=== PATIENT | female | born 1995 | race Caucasian/White ===

== ENCOUNTER 2016-12-04 07:19 | Observation (INO) | payer OTHER ==
[2016-12-04] VITALS (8 sets, daily range): BP systolic 106–130; BP diastolic 57–78
[~2016-12-04] VITALS: Ht 167.6 cm; Wt 86.5 kg
--- NOTE | 2016-12-04 10:14 | DIAGNOSTIC IMAGING REPORT ---
PROCEDURE: US ABDOMEN ULTRASOUND-LIMITED INDICATION: PAIN TECHNIQUE: Rodriguez scale and color Doppler sonographic images of the abdomen were obtained. COMPARISON: None. FINDINGS: There are multiple mobile shadowing gallstones (3-5 mm). Mild dilation of the common duct (6 mm). Portions of the liver, pancreas, and right kidney are seen, and are normal. IMPRESSION: 1. Cholelithiasis (mobile gallstones). 2. Mild dilation of the common bile duct (6 mm). Consider occult common duct stone. 3. Findings discussed with Dr. Noah Carmen.
--- NOTE | 2016-12-04 11:04 | ED NURSING NOTES ---
Clinical Report - Nurses [facility] [address] [place] [address] 12/04/2016 7:21 Patient: TIMOTHY OROSCO TRIAGE Triage time 07:31. Acuity: LEVEL 3. Chief Complaint: ABDOMINAL PAIN, NAUSEA, VOMITING and DIARRHEA. Alert. No acute distress. ( Pt. states she had a baby 5 weeks ago and had a "uterus infection because there was debri still in there." She is concerned this could be causing the pain.). SEPSIS SCREEN: Sepsis Screen. Negative (no infection suspected/documented). MELINDA COMA SCORE: Melinda Coma Scale: 15- eyes open spontaneously (4); best verbal response- oriented x 4 (5); best motor response- obeys commands (6). --07:35 Avelina Sidhu R.N. 07:30 12/04/16. BP: 107/58. HR: 88. RR: 26. O2 saturation: 100%. Temp: 97.6 F. Pain level now 8/10. --07:35 Avelina Sidhu R.N. Weight: 84.8 kg stated. Height/Length: 66 inches Per Patient. BMI: 30.2. --07:32 Avelina Sidhu R.N. Medications Fenugreek Oral, prn. --07:34 Avelina Sidhu R.N. Allergies Tramadol. --07:34 Avelina Sidhu R.N. Antibiotics. --07:34 Avelina Sidhu R.N. History Arrived by private vehicle. Historian: patient. Accompanied by family. Primary physician (Dr. Szymanski). This started today. Onset. (0200). Treatment BUSINESS INTERN: None. PAST MEDICAL HX: Immunizations: up-to-date. Last normal menstrual period- post 5 weeks. SOCIAL HX: Never smoker. No alcohol use or drug use. No recent travel. No infectious disease exposure. No known contact with a sick individual. ABUSE ASSESSMENT: Abuse assessment: The patient was asked "Do you feel safe in your home?" and "Has anyone hurt you or threatened to hurt you?". No report of abuse. SELF HARM ASSESSMENT: A self harm assessment was performed. The patient answered "no" to the question "Do you have thoughts of harming or killing yourself?" and "Have you recently had thoughts about harming or killing others?". NUTRITIONAL RISK ASSESSMENT: The nutritional risk assessment revealed no deficiencies. FUNCTIONAL ASSESSMENT: Functional assessment: no impairments noted. LEARNING NEEDS ASSESSMENT: The learning needs assessment revealed no barriers. --07:35 Avelina Sidhu R.N. Interventions ID band on patient. Transported via wheelchair. --07:35 Avelina Sidhu R.N. PHYSICAL ASSESSMENT To room via wheelchair. GENERAL / NEURO / PSYCH: Alert. Oriented X 4. Appears anxious. HEENT: Mucous membranes are pink. RESPIRATORY: Respirations not labored. CVS: Capillary refill less than 2 seconds. GI / : Abdomen soft. Abdominal tenderness in the periumbilical area. SKIN: Skin is warm and dry. --07:35 Avelina Sidhu R.N. NURSING PROGRESS NOTES Patient gowned. Head of bed elevated. Two patient identifiers checked. Call light placed in reach. Side rails up x 2. Bed placed in lowest position. Brakes of bed on. Patient ready for evaluation- chart flagged. --07:36 Avelina Sidhu R.N. 07:45 12/04/2016 Site #1 started via IV in the left antecubital space with an 20g angiocath; one attempt. Blood drawn: rainbow set. Labeled in the presence of the patient and sent to the lab. Saline lock flushed with 10 mL saline. --07:55 Yenni Lee R.N. 07:56 12/04/2016 Dilaudid (HYDROmorphone HCl PF) IVP 0.5 mg given over 2 minute(s) via site #1. Allergies verified, confirmed 5 rights and sedative warning given to the patient and patient's audio visual technician. IV patency established. IV site checked: no pain, redness, or swelling. IV flushed thoroughly pre- and post-medication administration. IVP given by RN. --07:56 Yenni Lee R.N. 07:56 12/04/2016 Ativan (LORazepam) IVP 0.5 mg given over 2 minute(s) via site #1. Allergies verified, confirmed 5 rights and sedative warning given to the patient and patient's audio visual technician. IV patency established. IV site checked: no pain, redness, or swelling. IV flushed thoroughly pre- and post-medication administration. IVP given by RN. --07:56 Yenni Lee R.N. 07:57 12/04/2016 Zofran (Ondansetron HCl) IVP 4 mg given over 2 minute(s) via site #1. Allergies verified and confirmed 5 rights. IV patency established. IV site checked: no pain, redness, or swelling. IV flushed thoroughly pre- and post-medication administration. IVP given by RN. --07:57 Yenni Lee R.N. 08:18 12/04/2016 GI COCKTAIL WHITE (Simethicone) PO 50 mL given. Allergies verified and confirmed 5 rights. --08:18 Avelina Sidhu R.N. Patient ID band checked for patient name, birthdate and medical record number: patient confirmed. Instructions provided to collect clean catch urine and patient verbalized understanding. Clean catch urine collected with return of yellow-colored clear urine; sample sent to lab for urinalysis. Specimen labeled in the presence of the patient. --09:09 Avelina Sidhu R.N. 08:30 12/04/2016 GI COCKTAIL WHITE PO Response: no adverse reaction the patient feels the same. --09:11 Avelina Sidhu R.N. 09:11 12/04/16. BP: 121/67. HR: 68. RR: 16. O2 saturation: 98%. Pain level now 09/23. --09:11 Avelina Sidhu R.N. Patient informed about reason for wait and about plan of care. --09:11 Avelina Sidhu R.N. 10:31 12/04/16. BP: 115/64. HR: 84. RR: 16. O2 saturation: 99%. --10:31 Avelina Sidhu R.N. Patient informed about reason for wait and about plan of care. --10:31 Avelina Sidhu R.N. 11:34 12/04/2016 Started 500 mg of Levofloxacin IVPB in bag #1 100 mL; at 100 mL/hr over 1 hour(s) via site #1 via IV pump. Allergies verified and confirmed 5 rights. IV patency established. IV site checked: no pain, redness, or swelling. IV flushed thoroughly pre- and post-medication administration. --11:40 Anastasiia Klein R.N. 11:36 12/04/2016 Started bag #1 1000 mL IV Fluids IV LACTATED RINGERS; at 150 mL/hr over 8 hour(s) via site #1 via IV pump. Allergies verified and confirmed 5 rights. IV patency established. IV site checked: no pain, redness, or swelling. IV flushed thoroughly pre- and post-medication administration. --11:36 Anastasiia Klein R.N. Reassessment after fluids administered and medication administered. She reports no complaints and she is resting quietly. --12:09 Avelina Sidhu R.N. 12:12/04/16. BP: 117/63. HR: 83. RR: 16. O2 saturation: 100%. Pain level now 09/23. --12:09 Avelina Sidhu R.N. ( Attempt to call report. AC RN to call back.). --12:12 Avelina Sidhu R.N. ( attempt to call report. AC RN to call back.). --12:24 Avelina Sidhu R.N. 12:30 12/04/2016 Levofloxacin IVPB Continued: upon admission at the rate of 150 mL/hr. 850 mL remaining bag #1. IV patency established. IV site checked: no pain, redness, or swelling. IV flushed thoroughly. --12:40 Avelina Sidhu R.N. DISPOSITION / DISCHARGE Report was given to a nurse via a phone call. Report included patient's care, treatment, medications, reviewed medication reconcilliation, and condition (including any recent changes or anticipated changes). All questions were answered. --12:28 Avelina Sidhu R.N. Admitted to Acute Care. Patient's personal items; items were placed in belongings bag and transported with the patient. --12:29 Avelina Sidhu R.N. ( 12:12/04/16. BP: 117/63. HR: 83. RR: 16. O2 saturation: 100%. Pain level now 09/23. 12:09 Avelina Sidhu R.N.). --12:35 Avelina Sidhu R.N. 12:34 12/04/16. RR: 15. Pain level now 09/23. --12:35 Avelina Sidhu R.N. Departure time: 12:30. --12:40 Avelina Sidhu R.N. Locked/Released at 12/04/2016 12:40 by Avelina Sidhu R.N.
--- NOTE | 2016-12-04 11:04 | ED CLINICAL REPORT ---
Clinical Report - Physicians/Mid Levels [facility] [address] [place] [address] 12/04/2016 7:21 Patient: TIMOTHY OROSCO Time Seen: 07:38 Dec 04 2016. Arrived- By private vehicle. Historian- patient. HISTORY OF PRESENT ILLNESS Chief Complaint: ABDOMINAL PAIN. At its maximum, severity described as moderate and 9 / 10. When seen in the E.D., severity described as moderate and 9 / 10. Modifying factors. Not worsened by anything. Not relieved by anything. It is described as "pain" and it is described as located in the epigastric area and radiating to the upper back. This started today 0200; ( Pt. states she had a baby 5 weeks ago and had a "uterus infection because there was debri still in there." She is concerned this could be causing the pain.). and is still present. The patient has had nausea, loss of appetite and vomiting. She has had mild diarrhea. This has occurred only once. No recent travel. Similar symptoms previously: None. Recent medical care: Not recently seen/assessed. REVIEW OF SYSTEMS No constipation, black stools, hematemesis, difficulty with urination or pain with urination. No urinary frequency, fever, sore throat, chest pain or difficulty breathing. No cough, joint pain, skin rash, chills or back pain. Denies current . All systems otherwise negative, except as recorded above. PAST HISTORY No history of gallstones. Surgeries: No prior abdominal surgery. Medications: Fenugreek Oral, prn. Allergies: Tramadol. Unasyn. SOCIAL HISTORY Never smoker. No alcohol use or drug use. ADDITIONAL NOTES The nursing notes have been reviewed. PHYSICAL EXAM Vital Signs: 12/04/2016 07:30 BP: 107/58. HR: 88. RR: 26. O2 saturation: 100%. Temp: 97.6 F. Have been reviewed. Hypotensive. Heart rate normal. Tachypneic. Temperature normal. Oxygen saturation normal. Appearance: Alert. Appears to be in pain. Patient in moderate distress. Eyes: Eyes normal inspection. ENT: Pharynx normal. Neck: Normal inspection. CVS: Normal heart rate and rhythm. Heart sounds normal. Pulses normal. Respiratory: No respiratory distress. Breath sounds normal. Chest nontender. Abdomen: Soft. Moderate tenderness in the epigastric area with guarding present. Abnormal bowel sounds: diminished. Back: Normal inspection. No CVA tenderness. Skin: Skin warm. Normal skin color. No rash. Neuro: Oriented X 3. No motor deficit. No sensory deficit. LABS, X-RAYS, AND EKG Abdominal Sonogram: (1. Cholelithiasis (mobile gallstones). 2. Mild dilation of the common bile duct (6 mm). Consider occult common duct stone.). Study included the gallbladder. Prior studies were not available for comparison. The study was interpreted by the radiologist and discussed with the radiologist. Interpretation time: 10:21. Laboratory Tests: CBC w Diff: (LIBERTY: 12/04/2016 07:35) ( [facility] 12/04/2016 08:01) Final results Test Result Flag Units (Reference) WHITE BLOOD COUNT 9.8 K/uL (4.5-11.5) RED BLOOD COUNT 4.45 M/uL (4.00-5.20) HEMOGLOBIN 10.6 L gm/dL (12.0-16.0) HEMATOCRIT 33.0 L % (36.0-46.0) MEAN CELL VOLUME 74 L fL (80-100) MEAN CORPUSCULAR HGB 24 L pg (26-34) MEAN CORPUSCULAR HGB CONC 32 g/dL (31-37) RED CELL DISTRIBUTION WIDTH 20.2 H % (11.6-14.8) PLATELET COUNT 265 K/uL (150-400) NEUTROPHIL % 64.2 % (50-75) LYMPH % 26.8 % (25-40) MONO % 7.4 % (3-14) EOSINOPHIL % 1.3 % (0-4) BASOPHIL % 0.3 % (0-2) CMP: (LIBERTY: 12/04/2016 07:35) ( [facility] 12/04/2016 08:33) Final results Test Result Flag Units (Reference) GLUCOSE 108 mg/dL (70-110) BUN 12 mg/dL (7-18) CREATININE 1.0 mg/dL (0.6-1.3) Estimated GFR >60 mL/min Estimated GFR- >60 mL/min Note: Persistent reduction over 3 months in eGFR<60 mL/min/1.73 m2 defines CKD. Patients with eGFR values>=60 mL/min/1.73 m2 may also have CKD if evidence ofpersistent proteinuria. Additional information may be foundat www.kidney.org. SODIUM 137 mmol/L (136-145) POTASSIUM 3.7 mmol/L (3.5-5.1) CHLORIDE 105 mmol/L (98-107) CARBON DIOXIDE 25 mmol/L (21-32) CALCIUM 8.3 L mg/dL (8.5-10.1) TOTAL PROTEIN 7.4 g/dL (6.4-8.2) ALBUMIN 3.5 g/dL (3.3-5.0) BILIRUBIN, TOTAL 0.6 mg/dL (0.0-1.0) ALKALINE PHOSPHATASE 147 H U/L (46-116) AST (SGOT) 369 H U/L (15-37) ALT (SGPT) 180 H U/L (12-78) LIPASE 190 U/L (73-393) AMYLASE 68 U/L (25-115) C-REACTIVE PROTEIN 0.6 mg/dL (0.0-0.9) . PROGRESS AND PROCEDURES Course of Care: Heplock Ativan 0.5 mg IV Dilaudid 0.5 mg IV Zofran 4 mg IV Patient is stable. Symptoms better. Consult obtained from surgery. call returned 11:01 Dr. Ward. Maria Esther, obs, and will take for Martinez Villar. Disposition: Observation in Acute Care. Condition: good. CLINICAL IMPRESSION Acute cholecystitis with obstruction, cholelithiasis and choledocholithiasis. INSTRUCTIONS Follow-up: Screening today revealed the patient's blood pressure to be in the normal range. (Electronically signed by Noah Carmen Dr. 12/04/2016 13:14)
--- NOTE | 2016-12-04 11:04 | ED ORDER SUMMARY ---
..... Patient: TIMOTHY OROSCO OrderSheet [facility] VisitID: [id number] [address] [place] [address] 21y, F Registration Date/Time: 12/04/2016 ORDER SHEET Weight: 84.8 kg (stated) Allergies: Tramadol, Unasyn GENERAL ORDERS: UA-Culture if indicated Urgent (07:37 12/04/2016 SReitz R.N. per protocol) (Sent 7:46 NKneeland R.N.) (9:06 SReitz R.N.) Amylase Urgent (07:37 12/04/2016 SReitz R.N. per protocol) (Sent 7:47 NKneeland R.N.) (8:16 SReitz R.N.) Lipase Urgent (07:37 12/04/2016 SReitz R.N. per protocol) (Sent 7:47 NKneeland R.N.) (8:16 SReitz R.N.) CMP Urgent (07:37 12/04/2016 SReitz R.N. per protocol) (Sent 7:47 NKneeland R.N.) (8:16 SReitz R.N.) CBC w Diff Urgent (07:37 12/04/2016 SReitz R.N. per protocol) (Sent 7:47 NKneeland R.N.) (8:16 SReitz R.N.) NPO (07:37 12/04/2016 SReitz R.N. per protocol) (Ack 7:47 NKneeland R.N.) (7:56 SReitz R.N.) PCT (Procalcitonin) Urgent (07:40 12/04/2016 Doris BURKETT) (Sent 7:47 NKneeland R.N.) (8:16 SReitz R.N.) CRP Urgent (07:40 12/04/2016 Doris BURKETT) (Sent 7:47 NKneeland R.N.) (8:16 SReitz R.N.) US Abdomen Limited (Yes) Urgent (08:36 12/04/2016 Doris BURKETT) (Ack 8:39 TBergley) (10:01 TBergley) MEDICATION ORDERS: GI Cocktail WHITE PO 50 mL (when nausea better.) (07:48 12/04/2016 Doris BURKETT) (Ack 8:15 Lise R.N.) (8:18 Lise Crockett.N.) IV FLUIDS: IV Saline Lock (07:37 12/04/2016 Lise Blackburn per protocol) (7:55 Jose Enrique Crockett.N.) Dilaudid IV 0.5 mg (NOW) (07:44 12/04/2016 Doris BURKETT) (7:56 Jose Enrique Crockett.N.) Ativan IV 0.5 mg (NOW) (07:44 12/04/2016 Doris BURKETT) (7:56 Jose Enrique Crockett.N.) Zofran IV 4 mg (NOW) (07:45 12/04/2016 Doris BURKETT) (7:57 Jose Enrique Crockett.N.) IV Lactated Ringers : initial bolus none -, then 150 mL/hr (NOW) (10:57 12/04/2016 Serafin Pierce) (Ack 11:22 MWinterer R.N.) (11:36 MWinterer R.N.) Flagyl IV 500 mg/100mL (NOW) (10:58 12/04/2016 Serafin Pierce) (Ack 11:22 MWinterer R.N.) Levofloxacin IV 500 mg/100mL (NOW) (10:58 12/04/2016 Serafin Pierce) (Ack 11:22 MWinterer R.N.) (11:40 MWinterer R.N.) ORDER SHEET NOTES: [Electronically signed by Avelina Sidhu R.N. (12:40 12/04/2016)] [Electronically signed by Noah Carmen Dr. (13:14 12/04/2016)] [Electronically locked/signed by Avelina Sidhu R.N. (12:40 12/04/2016)]
--- NOTE | 2016-12-04 11:04 | ED ORDER SUMMARY ---
..... Patient: TIMOTHY OROSCO OrderSheet [facility] VisitID: [id number] [address] [place] [address] 21y, F Registration Date/Time: 12/04/2016 ORDER SHEET Weight: 84.8 kg (stated) Allergies: Tramadol, Unasyn GENERAL ORDERS: UA-Culture if indicated Urgent (07:37 12/04/2016 SReitz R.N. per protocol) (Sent 7:46 NKneeland R.N.) (9:06 SReitz R.N.) Amylase Urgent (07:37 12/04/2016 SReitz R.N. per protocol) (Sent 7:47 NKneeland R.N.) (8:16 SReitz R.N.) Lipase Urgent (07:37 12/04/2016 SReitz R.N. per protocol) (Sent 7:47 NKneeland R.N.) (8:16 SReitz R.N.) CMP Urgent (07:37 12/04/2016 SReitz R.N. per protocol) (Sent 7:47 NKneeland R.N.) (8:16 SReitz R.N.) CBC w Diff Urgent (07:37 12/04/2016 SReitz R.N. per protocol) (Sent 7:47 NKneeland R.N.) (8:16 SReitz R.N.) NPO (07:37 12/04/2016 SReitz R.N. per protocol) (Ack 7:47 NKneeland R.N.) (7:56 SReitz R.N.) PCT (Procalcitonin) Urgent (07:40 12/04/2016 Doris BURKETT) (Sent 7:47 NKneeland R.N.) (8:16 SReitz R.N.) CRP Urgent (07:40 12/04/2016 Doris BURKETT) (Sent 7:47 NKneeland R.N.) (8:16 SReitz R.N.) US Abdomen Limited (Yes) Urgent (08:36 12/04/2016 Doris BURKETT) (Ack 8:39 TBergley) (10:01 TBergley) MEDICATION ORDERS: GI Cocktail WHITE PO 50 mL (when nausea better.) (07:48 12/04/2016 Doris BURKETT) (Ack 8:15 Lise R.N.) (8:18 Lise Crockett.N.) IV FLUIDS: IV Saline Lock (07:37 12/04/2016 Lise Blackburn per protocol) (7:55 Jose Enrique Crockett.N.) Dilaudid IV 0.5 mg (NOW) (07:44 12/04/2016 Doris BURKETT) (7:56 Jose Enrique Crockett.N.) Ativan IV 0.5 mg (NOW) (07:44 12/04/2016 Doris BURKETT) (7:56 Jose Enrique Crockett.N.) Zofran IV 4 mg (NOW) (07:45 12/04/2016 Doris BURKETT) (7:57 Jose Enrique Crockett.N.) IV Lactated Ringers : initial bolus none -, then 150 mL/hr (NOW) (10:57 12/04/2016 Serafin Pierce) (Ack 11:22 MWinterer R.N.) (11:36 MWinterer R.N.) Flagyl IV 500 mg/100mL (NOW) (10:58 12/04/2016 Serafin Pierce) (Ack 11:22 MWinterer R.N.) Levofloxacin IV 500 mg/100mL (NOW) (10:58 12/04/2016 Serafin Pierce) (Ack 11:22 MWinterer R.N.) (11:40 MWinterer R.N.) ORDER SHEET NOTES: [Electronically signed by Avelina Sidhu R.N. (12:40 12/04/2016)] [Electronically signed by Noah Carmen Dr. (13:14 12/04/2016)] [Electronically locked/signed by Avelina Sidhu R.N. (12:40 12/04/2016)]
--- NOTE | 2016-12-04 11:04 | ED CLINICAL REPORT ---
Clinical Report - Physicians/Mid Levels [facility] [address] [place] [address] 12/04/2016 7:21 Patient: TIMOTHY OROSCO Time Seen: 07:38 Dec 04 2016. Arrived- By private vehicle. Historian- patient. HISTORY OF PRESENT ILLNESS Chief Complaint: ABDOMINAL PAIN. At its maximum, severity described as moderate and 9 / 10. When seen in the E.D., severity described as moderate and 9 / 10. Modifying factors. Not worsened by anything. Not relieved by anything. It is described as "pain" and it is described as located in the epigastric area and radiating to the upper back. This started today 0200; ( Pt. states she had a baby 5 weeks ago and had a "uterus infection because there was debri still in there." She is concerned this could be causing the pain.). and is still present. The patient has had nausea, loss of appetite and vomiting. She has had mild diarrhea. This has occurred only once. No recent travel. Similar symptoms previously: None. Recent medical care: Not recently seen/assessed. REVIEW OF SYSTEMS No constipation, black stools, hematemesis, difficulty with urination or pain with urination. No urinary frequency, fever, sore throat, chest pain or difficulty breathing. No cough, joint pain, skin rash, chills or back pain. Denies current . All systems otherwise negative, except as recorded above. PAST HISTORY No history of gallstones. Surgeries: No prior abdominal surgery. Medications: Fenugreek Oral, prn. Allergies: Tramadol. Unasyn. SOCIAL HISTORY Never smoker. No alcohol use or drug use. ADDITIONAL NOTES The nursing notes have been reviewed. PHYSICAL EXAM Vital Signs: 12/04/2016 07:30 BP: 107/58. HR: 88. RR: 26. O2 saturation: 100%. Temp: 97.6 F. Have been reviewed. Hypotensive. Heart rate normal. Tachypneic. Temperature normal. Oxygen saturation normal. Appearance: Alert. Appears to be in pain. Patient in moderate distress. Eyes: Eyes normal inspection. ENT: Pharynx normal. Neck: Normal inspection. CVS: Normal heart rate and rhythm. Heart sounds normal. Pulses normal. Respiratory: No respiratory distress. Breath sounds normal. Chest nontender. Abdomen: Soft. Moderate tenderness in the epigastric area with guarding present. Abnormal bowel sounds: diminished. Back: Normal inspection. No CVA tenderness. Skin: Skin warm. Normal skin color. No rash. Neuro: Oriented X 3. No motor deficit. No sensory deficit. LABS, X-RAYS, AND EKG Abdominal Sonogram: (1. Cholelithiasis (mobile gallstones). 2. Mild dilation of the common bile duct (6 mm). Consider occult common duct stone.). Study included the gallbladder. Prior studies were not available for comparison. The study was interpreted by the radiologist and discussed with the radiologist. Interpretation time: 10:21. Laboratory Tests: CBC w Diff: (LIBERTY: 12/04/2016 07:35) ( [facility] 12/04/2016 08:01) Final results Test Result Flag Units (Reference) WHITE BLOOD COUNT 9.8 K/uL (4.5-11.5) RED BLOOD COUNT 4.45 M/uL (4.00-5.20) HEMOGLOBIN 10.6 L gm/dL (12.0-16.0) HEMATOCRIT 33.0 L % (36.0-46.0) MEAN CELL VOLUME 74 L fL (80-100) MEAN CORPUSCULAR HGB 24 L pg (26-34) MEAN CORPUSCULAR HGB CONC 32 g/dL (31-37) RED CELL DISTRIBUTION WIDTH 20.2 H % (11.6-14.8) PLATELET COUNT 265 K/uL (150-400) NEUTROPHIL % 64.2 % (50-75) LYMPH % 26.8 % (25-40) MONO % 7.4 % (3-14) EOSINOPHIL % 1.3 % (0-4) BASOPHIL % 0.3 % (0-2) CMP: (LIBERTY: 12/04/2016 07:35) ( [facility] 12/04/2016 08:33) Final results Test Result Flag Units (Reference) GLUCOSE 108 mg/dL (70-110) BUN 12 mg/dL (7-18) CREATININE 1.0 mg/dL (0.6-1.3) Estimated GFR >60 mL/min Estimated GFR- >60 mL/min Note: Persistent reduction over 3 months in eGFR<60 mL/min/1.73 m2 defines CKD. Patients with eGFR values>=60 mL/min/1.73 m2 may also have CKD if evidence ofpersistent proteinuria. Additional information may be foundat www.kidney.org. SODIUM 137 mmol/L (136-145) POTASSIUM 3.7 mmol/L (3.5-5.1) CHLORIDE 105 mmol/L (98-107) CARBON DIOXIDE 25 mmol/L (21-32) CALCIUM 8.3 L mg/dL (8.5-10.1) TOTAL PROTEIN 7.4 g/dL (6.4-8.2) ALBUMIN 3.5 g/dL (3.3-5.0) BILIRUBIN, TOTAL 0.6 mg/dL (0.0-1.0) ALKALINE PHOSPHATASE 147 H U/L (46-116) AST (SGOT) 369 H U/L (15-37) ALT (SGPT) 180 H U/L (12-78) LIPASE 190 U/L (73-393) AMYLASE 68 U/L (25-115) C-REACTIVE PROTEIN 0.6 mg/dL (0.0-0.9) . PROGRESS AND PROCEDURES Course of Care: Heplock Ativan 0.5 mg IV Dilaudid 0.5 mg IV Zofran 4 mg IV Patient is stable. Symptoms better. Consult obtained from surgery. call returned 11:01 Dr. Ward. Maria Esther, obs, and will take for Martinez Villar. Disposition: Observation in Acute Care. Condition: good. CLINICAL IMPRESSION Acute cholecystitis with obstruction, cholelithiasis and choledocholithiasis. INSTRUCTIONS Follow-up: Screening today revealed the patient's blood pressure to be in the normal range. (Electronically signed by Noah Carmen Dr. 12/04/2016 13:14)
[2016-12-04] MEDS ORDERED: [UNRECOGNIZED DRUG - OTHER] (13:02)
--- NOTE | 2016-12-04 13:14 | ED MED RECONCILIATION SUMMARY ---
Patient: TIMOTHY OROSCO Medication Reconciliation Report [facility] VisitID: [id number] [address] [place] [address] 21y, F Registration Date/Time: 12/04/2016 Weight: 84.8 kg Height/Length: 66 in. BMI: 30.2 ALLERGIES: Tramadol, Unasyn The patient's Home Medications are listed below: THE FOLLOWING MEDICATIONS NEED TO BE RECONCILED: Fenugreek Oral, prn The source(s) of the original Home Medication information: Not obtained. The following Medications were given to the patient in the Emergency Department: Dilaudid [IVP] IVP 0.5 mg, administered: 12/04/2016 7:56:00 AM Ativan [IVP] IVP 0.5 mg, administered: 12/04/2016 7:56:00 AM Zofran [IVP] IVP 4 mg, administered: 12/04/2016 7:57:00 AM GI COCKTAIL WHITE [PO] PO 50 mL, administered: 12/04/2016 8:18:00 AM IV LACTATED RINGERS IV Fluids bolus 0, then 150 mL/hr, administered: 12/04/2016 11:36:00 AM Levofloxacin [IVPB] IVPB bolus 0, then 500 mg 100 mL/hr, administered: 12/04/2016 11:34:00 AM The following Medications were prescribed to the patient: None.
--- NOTE | 2016-12-04 13:14 | ED MED RECONCILIATION SUMMARY ---
Patient: TIMOTHY OROSCO Medication Reconciliation Report [facility] VisitID: [id number] [address] [place] [address] 21y, F Registration Date/Time: 12/04/2016 Weight: 84.8 kg Height/Length: 66 in. BMI: 30.2 ALLERGIES: Tramadol, Unasyn The patient's Home Medications are listed below: THE FOLLOWING MEDICATIONS NEED TO BE RECONCILED: Fenugreek Oral, prn The source(s) of the original Home Medication information: Not obtained. The following Medications were given to the patient in the Emergency Department: Dilaudid [IVP] IVP 0.5 mg, administered: 12/04/2016 7:56:00 AM Ativan [IVP] IVP 0.5 mg, administered: 12/04/2016 7:56:00 AM Zofran [IVP] IVP 4 mg, administered: 12/04/2016 7:57:00 AM GI COCKTAIL WHITE [PO] PO 50 mL, administered: 12/04/2016 8:18:00 AM IV LACTATED RINGERS IV Fluids bolus 0, then 150 mL/hr, administered: 12/04/2016 11:36:00 AM Levofloxacin [IVPB] IVPB bolus 0, then 500 mg 100 mL/hr, administered: 12/04/2016 11:34:00 AM The following Medications were prescribed to the patient: None.
--- NOTE | 2016-12-04 13:14 | ED MAR SUMMARY ---
..... Medication Administration Record [facility] [address] [place] [address] Patient: TIMOTHY OROSCO Visit ID: [id number] 21y, F Weight: 84.8 kg Height/Length: 66 in BMI: 30.2 ALLERGIES: Tramadol, Unasyn Given 07:56 12/04/2016 Yenni Lee R.N. Medication Administered: DILAUDID [IVP] (HYDROMORPHONE HCL PF), Dose: 0.5 mg IVP over 2 minute(s), Site: #1 left AC. Medication Ordered: Dilaudid IV 0.5 mg (NOW). Given 07:56 12/04/2016 Yenni Lee R.N. Medication Administered: ATIVAN [IVP] (LORAZEPAM), Dose: 0.5 mg IVP over 2 minute(s), Site: #1 left AC. Medication Ordered: Ativan IV 0.5 mg (NOW). Given 07:57 12/04/2016 Yenni Lee R.N. Medication Administered: ZOFRAN [IVP] (ONDANSETRON HCL), Dose: 4 mg IVP over 2 minute(s), Site: #1 left AC. Medication Ordered: Zofran IV 4 mg (NOW). Given 08:18 12/04/2016 Avelina Sidhu R.N. Medication Administered: GI COCKTAIL WHITE [PO] (SIMETHICONE), Dose: 50 mL PO. Medication Ordered: GI Cocktail WHITE PO 50 mL (when nausea better.). Start 11:34 12/04/2016 Anastasiia Klein R.N., Continued Upon Admission 12:30 12/04/2016 Avelina Siduh R.N. Medication Administered: LEVOFLOXACIN [IVPB], Dose: 500 mg IVPB over 1 hour(s), Rate: 100 mL/hr, Dispensed: 100 mL bag, Site: #1 left AC. Medication Ordered: Levofloxacin IV 500 mg/100mL (NOW). Start 11:36 12/04/2016 Anastasiia Klein R.N. Medication Administered: IV LACTATED RINGERS, Dose: IV Fluids over 8 hour(s), Rate: 150 mL/hr, Dispensed: 1000 mL bag, Site: #1 left AC. Medication Ordered: IV Lactated Ringers : initial bolus none -, then 150 mL/hr (NOW).
--- NOTE | 2016-12-04 13:14 | ED DISCHARGE INSTRUCTIONS ---
Patient: TIMOTHY OROSCO General Instructions [facility] VisitID: [id number] [address] [place] [address] 21y, F Registration Date/Time: 12/04/2016 Acute cholecystitis with obstruction, cholelithiasis and choledocholithiasis. INSTRUCTIONS Follow-up: Screening today revealed the patient's blood pressure to be in the normal range. (Electronically signed by Noah Carmen Dr. 12/04/2016 13:14)
--- NOTE | 2016-12-04 13:14 | ED DISCHARGE INSTRUCTIONS ---
Patient: TIMOTHY OROSCO General Instructions Located [facility] VisitID: [id number] [address] [place] [address] 21y, F Registration Date/Time: 12/04/2016 Acute cholecystitis with obstruction, cholelithiasis and choledocholithiasis. INSTRUCTIONS Follow-up: Screening today revealed the patient's blood pressure to be in the normal range. (Electronically signed by Noah Carmen Dr. 12/04/2016 13:14)
--- NOTE | 2016-12-04 13:14 | ED MAR SUMMARY ---
..... Medication Administration Record [facility] [address] [place] [place] [address] Patient: TIMOTHY OROSCO Visit ID: [id number] 21y, F Weight: 84.8 kg Height/Length: 66 in BMI: 30.2 ALLERGIES: Tramadol, Unasyn Given 07:56 12/04/2016 Yenni Lee R.N. Medication Administered: DILAUDID [IVP] (HYDROMORPHONE HCL PF), Dose: 0.5 mg IVP over 2 minute(s), Site: #1 left AC. Medication Ordered: Dilaudid IV 0.5 mg (NOW). Given 07:56 12/04/2016 Yenni Lee R.N. Medication Administered: ATIVAN [IVP] (LORAZEPAM), Dose: 0.5 mg IVP over 2 minute(s), Site: #1 left AC. Medication Ordered: Ativan IV 0.5 mg (NOW). Given 07:57 12/04/2016 Yenni Lee R.N. Medication Administered: ZOFRAN [IVP] (ONDANSETRON HCL), Dose: 4 mg IVP over 2 minute(s), Site: #1 left AC. Medication Ordered: Zofran IV 4 mg (NOW). Given 08:18 12/04/2016 Avelina Sidhu R.N. Medication Administered: GI COCKTAIL WHITE [PO] (SIMETHICONE), Dose: 50 mL PO. Medication Ordered: GI Cocktail WHITE PO 50 mL (when nausea better.). Start 11:34 12/04/2016 Aanstasiia Klein R.N., Continued Upon Admission 12:30 12/04/2016 Avelina Sidhu R.N. Medication Administered: LEVOFLOXACIN [IVPB], Dose: 500 mg IVPB over 1 hour(s), Rate: 100 mL/hr, Dispensed: 100 mL bag, Site: #1 left AC. Medication Ordered: Levofloxacin IV 500 mg/100mL (NOW). Start 11:36 12/04/2016 Anastasiia Klein R.N. Medication Administered: IV LACTATED RINGERS, Dose: IV Fluids over 8 hour(s), Rate: 150 mL/hr, Dispensed: 1000 mL bag, Site: #1 left AC. Medication Ordered: IV Lactated Ringers : initial bolus none -, then 150 mL/hr (NOW).
--- NOTE | 2016-12-04 15:48 | DIAGNOSTIC IMAGING REPORT ---
PROCEDURE: XR INTRAOPERATIVE LAP AXEL INDICATION: LAP AXEL WITH INTRAOPERATIVE CHOLANGIOGRAM TECHNIQUE: Study performed and contrast injected by Dr. Les Morris Fluoroscopy time 2.02 minutes, 33.8 mGy. COMPARISON: None. FINDINGS: Two AP C-arm views. Initial injection demonstrates occlusion of the common bile duct. Subsequent balloon dilation sphincterotomy was performed with contrast flowing into the duodenum. IMPRESSION: 1. Initial injection demonstrates occlusion of the common bile duct which was followed by balloon dilation of the common bile duct.
[2016-12-05 02:19] VITALS: BP 107/61
--- NOTE | 2016-12-05 02:55 | CONSULTATION REPORT ---
DATE OF CONSULTATION: 12/04/2016 CHIEF COMPLAINT: 1. Right upper quadrant abdominal pain HISTORY OF PRESENT ILLNESS: The patient is a 21-year-old woman who awoke this morning, about 2 in the morning with severe pain in the right upper quadrant radiating through to the back. She describes it as it felt like a balloon try to explode. The pain got gradually worse and became associated with nausea and vomiting of clear fluid. She presented to the emergency department. She did have 1 diarrheal bowel movement, which she had hoped would relieve her problem, but failed to improve things. The patient denies any previous history of jaundice or pancreatitis. She is about 5 weeks and is G2, P2. MEDICAL/SURGICAL HISTORY: Medical diseases, none. Surgery, liposuction of the abdomen, abdominoplasty, augmentation mammoplasty and tonsillectomy. MEDICATIONS: 1. Fenugreek to improve Note that the patient is probably going to stop after this illness. ALLERGIES: THE PATIENT HAD A HEADACHE AFTER RECEIVING SOME UNASYN, BUT HAS NO OTHER CLEAR ALLERGIES TO MEDICATIONS. 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. She grew up in [place]. She is . She does not smoke cigarettes or take alcohol. 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 FAMILY HISTORY: Her aunt of carcinoma of the lung. She was a smoker. Her grandmother's sister had breast cancer. REVIEW OF SYSTEMS: A multipoint review of systems was obtained. The patient reports no additional symptoms other than the ones related to her abdomen. She reports no ears and nose problems, visual problems, hearing problems, neck difficulties, chest pain, palpitations, cough or productive cough, acute extremity problems. PHYSICAL EXAMINATION: GENERAL: The patient was alert and cooperative. VITAL SIGNS: Temperature 98.4, pulse 77, respirations 18, blood pressure 130/75. Room air saturation 100%. HEENT: Her ears and nose without gross external lesions. She appeared to be in moderate abdominal discomfort. NECK: Without palpable masses or thyromegaly. CHEST: Clear to auscultation. HEART: Regular, without murmur or gallop. ABDOMEN: Revealed localized tenderness in the right upper quadrant to palpation with localized involuntary guarding. LAB/IMAGING: Show a white count of 9.8, hemoglobin and hematocrit of 10.6 and 33. Her electrolytes are normal. She had an elevation in her AST, ALT, and alkaline phosphatase. Normal amylase and lipase, normal bilirubin. The abdominal ultrasound demonstrated cholelithiasis with mobile gallstones. There is a mild dilation of the common duct at about 6 mm. IMPRESSION: 1. Cholelithiasis with acute cholecystitis. PLAN: I have recommended laparoscopic cholecystectomy with cholangiography I talked to the patient about the nature of this operation as well as potential alternatives, benefits and risks. Risks discussed included infection, bleeding, scars, pain, damage to local structures, possible common bile duct stones and possible postoperative pancreatitis and others. The patient would like to proceed with surgery as described to her.
--- NOTE | 2016-12-05 02:58 | OPERATIVE REPORT ---
DATE OF SURGERY: 12/04/2016 SURGEON: Les Morris MD PREOPERATIVE DIAGNOSIS: 1. Cholelithiasis with acute cholecystitis POSTOPERATIVE DIAGNOSIS: 1. Cholelithiasis with choledocholithiasis PROCEDURE PERFORMED: 1. Laparoscopic cholecystectomy and cholangiography 2. Laparoscopic common bile duct exploration. ANESTHESIA: General. INDICATIONS: The patient is a 21-year-old woman who presented with right upper quadrant pain and gallstones. The common duct was 6 mm preoperatively. SURGICAL TECHNIQUE: The patient was taken to the operating room, where a general anesthetic was administered and the patient prepped and draped in the usual sterile fashion. A local anesthetic of 0.5% Marcaine with epinephrine was used at each incision site. An intraabdominal incision was made and a Veress needle used to insufflate the abdominal cavity. A 10 mm cannula was passed and visualization was obtained. The gallbladder was elevated and anterior adhesions were taken down with blunt and electrocautery dissection. The cystic duct was generous in size. It was isolated at the neck of the gallbladder and a clip was placed. It was opened and 2 small yellow cholesterol gallstones were milked out of the cystic duct. A cholangiogram catheter was placed and another attempt done. This would not irrigate further, therefore it was removed and then milking produced another fragment from the cystic duct. Following this, the catheter flushed without difficulty. The cholangiogram, however, demonstrated that there was a distal obstruction of the common duct consistent with a small gallstone impacted in the sphincter of Oddi. Flushing with saline failed to clear this problem therefore the common duct was explored. A hydrophilic floppy tip guidewire was inserted and maneuvered into the duodenum. The common duct dilating balloon was inserted and positioned across the sphincter and used to dilate this sphincter. It was then withdrawn and partially reinflated in the cystic duct. A full syringe of saline was flushed, following which another cholangiogram was performed which demonstrated free flow through the distal common duct into the duodenum and no residual filling defect. The cystic duct was doubly clipped and divided. The cystic artery was clipped and divided and the gallbladder stripped from the gallbladder fossa using electrocautery. It was pulled to the upper midline trocar site where it was emptied of multiple small yellow gallstones and clear green bile. The gallbladder was submitted for histopathology. The gallbladder bed was irrigated and found to be hemostatic without evidence of bile leak. After flushing and suctioning, additional Marcaine was instilled. Gas was evacuated and the midline skin sites closed with interrupted subcuticular 4-0 Vicryl. Steri- Strips and dressings were placed at all sites. The patient left in good condition. No intraoperative complications were encountered.
[2016-12-05 07:48] VITALS: BP 115/66
--- NOTE | 2016-12-05 08:11 | Provider's Discharge Care Plan ---
Problem, Goal, Plan Problem List 1. Choledocholithiasis with acute cholecystitis with obstruction
--- NOTE | 2016-12-05 08:11 | Provider's Discharge Care Plan ---
Problem, Goal, Plan Problem List 1. Choledocholithiasis with acute cholecystitis with obstruction
--- NOTE | 2016-12-05 08:14 | Progress Note ---
Subjective General Pt. feels fine, no complaints except abdominal soreness. Physical Exam Vital Signs / I&Os Vital Signs Date Time Temp Pulse Resp B/P Pulse O2 O2 Flow FiO2 Ox Delivery Rate 12/05 0748 98.1 58 18 115/66 98 Room Air 0.0 12/05 0219 98.1 58 15 107/61 99 Room Air 0.0 12/04 2305 98.8 58 18 106/57 98 Room Air 12/04 2130 Room Air 12/04 1947 99.3 83 20 118/71 100 Room Air 12/04 1815 81 20 110/67 100 Room Air 12/04 1744 70 18 111/72 96 Room Air 12/04 1726 71 16 116/72 95 Room Air 12/04 1710 78 18 123/75 99 Room Air 12/04 1655 97.3 81 20 123/78 97 Room Air 12/04 1641 98.2 89 16 124/69 98 12/04 1635 88 16 131/71 99 12/04 1626 84 16 131/71 99 12/04 1620 89 16 130/81 98 12/04 1612 91 19 130/83 100 12/04 1607 95 21 123/76 99 12/04 1603 97.5 98 20 124/81 100 12/04 1316 98.4 77 18 130/75 100 Room Air 0.0 I&O 12/04 0800 12/04 1600 12/05 0000 Intake Total 720 50 Output Total 150 550 Balance 570 -500 General Appearance Alert, Oriented X3, Cooperative Abdomen No guarding LAB Results Laboratory Tests 12/04 12/05 12/05 0905 UNK 0540 Chemistry Plasma Sodium (136 - 145 mmol/L) 140 Plasma Potassium (3.5 - 5.1 mmol/L) 4.2 Plasma Chloride (98 - 107 mmol/L) 105 CO2 (Enzymatic) (21 - 32 mmol/L) 24 BUN (7 - 18 mg/dL) 5 Creatinine (0.6 - 1.3 mg/dL) 0.8 Est GFR ( Amer) (mL/min) >60 Est GFR (Non-Af Amer) (mL/min) >60 Glucose (70 - 110 mg/dL) 115 Plasma Calcium (8.5 - 10.1 mg/dL) 8.2 Amylase (25 - 115 U/L) Cancelled 43 Lipase (73 - 393 U/L) Cancelled 108 Urines Urine Color YELLOW Urine Appearance CLEAR Urine pH (5.0 - 8.0) 5.5 Ur Specific [place] (1.010 - 1.030) <= 1.005 Urine Protein (NEGATIVE) NEGATIVE Urine Ketones (NEGATIVE) NEGATIVE Urine Blood (NEGATIVE) TRACE-INTACT Urine Nitrite (NEGATIVE) NEGATIVE Urine Bilirubin (NEGATIVE) NEGATIVE Urine Urobilinogen (0.2 - 1.0 EU/dL) 0.2 Ur Leukocyte Esterase (NEGATIVE) POSITIVE Urine RBC (0 - 1 rbc/hpf) 1-3 Urine WBC (0 - 1 wbc/hpf) 3-5 Ur Epithelial Cells (0 - 5 EPI/hpf) 1-3 Urine Bacteria (NONE SEEN) FEW (1+) Urine Glucose (NEGATIVE) NEGATIVE Urine Comment CULTURE INDICATED Microbiology Date/Time Procedure - Status Source Growth 12/04 904 Urine Culture - RECD URINE CC Assessment and Plan Problem List 1. Choledocholithiasis with acute cholecystitis with obstruction Plan advance diet as pt. has normal pancreatic enzymes, home today if tolerating PO and follow up in the office, pt. does not desire additional narcotic pain medication
[2016-12-05 11:21] VITALS: BP 116/67
[2016-12-05] MEDS ORDERED: NORCO1 TA1 PO (11:41)
== END 2016-12-05 12:00 | disposition home or self-care (01) ==
LOC: ED SRH 07:19 → TRANS SRH 10:59 → ACUTE2 SRH 10:59
PROVIDERS: Surgery; ADMIT Family Medicine
PROC: 0FT44ZZ Resection of Gallbladder, Percutaneous Endoscopic Approach (ICD-10-PCS; principal; 2016-12-04 14:15)
PROC: BF101ZZ Fluoroscopy of Bile Ducts using Low Osmolar Contrast (ICD-10-PCS; principal; 2016-12-04 14:15)
PROC: 0F7C4ZZ Dilation of Ampulla of Vater, Percutaneous Endoscopic Approach (ICD-10-PCS; principal; 2016-12-04 14:15)
DX: O99.63 Diseases of the digestive system complicating the puerperium (principal); K80.63 Calculus of gallbladder and bile duct with acute cholecystitis with obstruction; R11.2 Nausea with vomiting, unspecified
CPT/HCPCS: 29229; 29230; 50002; 60001; 70002; 80102; 80248; 82794; 82807; 82952; 83339; 83348; 83432; 83587; 83920; 83937; 83982; 84038; 90004; 90047; 90074; 90100; 90469; 91585; 92235; 92530; 93004; 95059

== ENCOUNTER 2017-01-23 20:40 | Emergency (ER) | payer OTHER ==
[~2017-01-23 20:40] MED LIST: NORCO1 TA1 PO; [UNRECOGNIZED DRUG - OTHER]
--- NOTE | 2017-01-23 21:42 | ED NURSING NOTES ---
Clinical Report - Nurses [facility] [address] [place] [address] 01/23/2017 20:41 Patient: TIMOTHY OROSCO TRIAGE Triage time 20:52. Acuity: LEVEL 4. Chief Complaint: REDNESS and PAIN TO LEFT EYE. Alert. SEPSIS SCREEN: Sepsis Screen. Negative (no infection suspected/documented). VISUAL ACUITY: Visual acuity performed without corrective lenses: left eye 20/50; right eye 20/20; both eyes 20/20. Patient normally wears corrective lenses. --21:03 Scott Frances R.N. 20:52 01/23/17. BP: 117/72. HR: 96. RR: 16. O2 saturation: 100%. Temp: 98.5 F (oral). Pain level now: 01/23. --21:03 Scott Frances R.N. Weight: 81.1 kg stated. Height/Length: 66 inches Per Patient. BMI: 28.9. --20:55 Scott Frances R.N. Medications Motrin Oral 800 mg, 3x a day as needed. --20:56 Scott Frances R.N. Refresh Ophthalmic. --20:57 Scott Frances R.N. Ofloxacin Ophthalmic 2-ggts , 4-6 x daily. --20:57 Scott Frances R.N. Allergies Tramadol. --20:58 Scott Frances R.N. Medication/allergy information source: the patient. --21:03 Scott Frances R.N. History Arrived by private vehicle. Historian: patient. Accompanied by family. Primary physician ([facility]). Onset. (Last Monday night). ( Patient reports being seen in ED at [facility] on Monday was told she has a corneal abrasion, has been using the prescribed meds,was seen today at the [facility] clinic and was told to be seen in ED again because not getting better). PAST MEDICAL HX: Immunizations: up-to-date. Last normal menstrual period was 4 weeks ago. SOCIAL HX: Never smoker. No alcohol use or drug use. ABUSE ASSESSMENT: No report of abuse. FALL RISK ASSESSMENT: Fall risk assessment completed. No fall risk identified. NUTRITIONAL RISK ASSESSMENT: The nutritional risk assessment revealed no deficiencies. FUNCTIONAL ASSESSMENT: Functional assessment: no impairments noted. LEARNING NEEDS ASSESSMENT: The learning needs assessment revealed no barriers. SKIN INTEGRITY ASSESSMENT: Skin integrity risk assessment completed. No skin integrity risk identified. --21:03 Scott Frances R.N. PROBLEMS: Cholecystitis. --21:00 Scott Frances R.N. ADDITIONAL SURGERIES: Cholecystectomy. Knee Surgery. Tonsillectomy. --21:00 Scott Frances R.N. Interventions ID band on patient. To treatment room. --21:03 Scott Frances R.N. PHYSICAL ASSESSMENT 21:04. Ambulatory to room. GENERAL / NEURO / PSYCH: Alert. HEENT: No facial asymmetry noted. ( swelling of upper and lower eye lids). RESPIRATORY: Respirations not labored. SKIN: Skin is warm and dry. Abnormal skin turgor. --21:04 Scott Frances R.N. NURSING PROGRESS NOTES 21:04. Head of bed elevated. Two patient identifiers checked. Call light placed in reach. Bed placed in lowest position. Brakes of bed on. Patient ready for evaluation- chart flagged. --21:04 Scott Frances R.N. 21:20 01/23/2017 Proparacaine Eye Drops 2 drop given. (at bedside). --21:45 Scott Frances R.N. 21:20 01/23/2017 FLUORESCEIN Opth soln 1 Strip given. (at bedside). --21:45 Scott Frances R.N. 21:46. The patient is calm and resting quietly. GENERAL / NEURO / PSYCH: Alert. Oriented X 4. RESPIRATORY: No respiratory distress. SKIN: Skin color within normal limits. Skin is warm and dry. --21:52 Scott Frances R.N. DISPOSITION / DISCHARGE Departure time: 21:50. Condition at departure: stable. No learning barriers present. Discharge instructions provided and reviewed with the patient. Reviewed medication(s) side effects, precautions, dosing and course information. Prescription(s) given to the patient. Patient verbalized understanding. Written instructions provided in Croatian. The patient was discharged home and unaccompanied at time of discharge. She left the Emergency Department ambulatory and via private vehicle. Patient driving. FALL RISK ASSESSMENT: Fall risk assessment completed. No fall risk identified. --21:52 Scott Frances R.N. Locked/Released at 01/23/2017 21:53 by Scott Frances R.N.
--- NOTE | 2017-01-23 21:42 | ED CLINICAL REPORT ---
Clinical Report - Physicians/Mid Levels [facility] [address] [place] [address] 01/23/2017 20:41 Patient: TIMOTHY OROSCO Time Seen: 2100; initial patient contact. Arrived- By private vehicle. Historian- patient. HISTORY OF PRESENT ILLNESS Chief Complaint: EYE REDNESS and IRRITATION. This started past 4 days, involves the left eye and is characterized as moderate in severity. The patient sustained injury. This occurred at home. She wears contact lenses. Mechanism- removing contact from eye. Eye pain, discomfort, burning, redness and irritation. Patient denies injury to the head, face or neck. REVIEW OF SYSTEMS No fever or cough. All systems otherwise negative, except as recorded above. PAST HISTORY See nurses notes. Tetanus immunization status is up-to-date. PHYSICAL EXAM HEENT: Ears normal. Nose normal. Pharynx normal. Head appears normal to external inspection. Eyes: Pupils equal, round and reactive to light. Accommodation normal. corneal abrasion to the 10 oclock position of the left eye. 1mm. negative baylee's sign. no other uptake of dye. no cell and flare. left sided conjunctival injection and mild edema to the upper and lower eyelid. no fb. no proptosis of the eye. no cellulitis. no crepitus. Neck: Neck supple. Normal inspection. CVS: Normal heart rate and rhythm. Heart sounds normal. Respiratory: No respiratory distress. Breath sounds normal. Abdomen: Nontender. No organomegaly. : Normal genitalia. Skin: No rash. PROGRESS AND PROCEDURES Course of Care: Patient with corneal abrasion revisit. no new symptoms except with swelling of the eyelid with use of abx eye drops. no other concerning findings with eye. symptoms improved with eye drops. discussed literature about proparicaine eye drops and treatment with those. patient agreeable given risks and benefits. will change abx eye drops to erythromycin. note for work provided. patient with outpatient follow up in 4 days with ophtho. Disposition: Discharged. Condition: good. CLINICAL IMPRESSION 01/23/2017 20:52 BP: 117/72. HR: 96. RR: 16. O2 saturation: 100%. Temp: 98.5 F. Pain level now: 7/10. Blood pressure normal. Oxygen saturation normal. Acute conjunctivitis of the left eye (acute). Small corneal abrasion to the left eye. No foreign body. INSTRUCTIONS Off work today, tomorrow. Warnings: GENERAL WARNINGS: Return or contact your physician immediately if your condition worsens or changes unexpectedly, if not improving as expected, or if other problems arise. Specifically return if pain, vomiting, bleeding, breathing difficulty or fever. Your Current Medications: STOP TAKING THE FOLLOWING MEDICATIONS: Ofloxacin Ophthalmic : 2-ggts 4-6 x daily. CONTINUE TAKING THE FOLLOWING MEDICATIONS: Motrin Oral : 800 mg 3x a day, prn. Refresh Ophthalmic. Prescription Medications: Erythromycin ophthalmic ointment 0.5% : apply 0.5 inch to inner aspect of the lower lid on the affected eye every 4 hours while awake for 5 days. Dispense three and one half (3.5) grams. No refill. Follow-up: Return to the emergency department as needed. Follow up with your doctor as scheduled. Reason for referral: recheck today's concerns. Summary of care provided to patient via paper. Screening today revealed the patient's blood pressure to be in the normal range. The patient should follow up with a primary care provider for blood pressure management. Understanding of the discharge instructions verbalized by patient. (Electronically signed by Roni Saavedra Dr. 01/24/2017 0:13)
--- NOTE | 2017-01-23 21:42 | ED NURSING NOTES ---
Clinical Report - [facility] [address] [place] [address] 01/23/2017 20:41 Patient: TIMOTHY OROSCO TRIAGE Triage time 20:52. Acuity: LEVEL 4. Chief Complaint: REDNESS and PAIN TO LEFT EYE. Alert. SEPSIS SCREEN: Sepsis Screen. Negative (no infection suspected/documented). VISUAL ACUITY: Visual acuity performed without corrective lenses: left eye 20/50; right eye 20/20; both eyes 20/20. Patient normally wears corrective lenses. --21:03 Scott Frances R.N. 20:52 01/23/17. BP: 117/72. HR: 96. RR: 16. O2 saturation: 100%. Temp: 98.5 F (oral). Pain level now: 01/23. --21:03 Scott Frances R.N. Weight: 81.1 kg stated. Height/Length: 66 inches Per Patient. BMI: 28.9. --20:55 Scott Frances R.N. Medications Motrin Oral 800 mg, 3x a day as needed. --20:56 Scott Frances R.N. Refresh Ophthalmic. --20:57 Scott Frances R.N. Ofloxacin Ophthalmic 2-ggts , 4-6 x daily. --20:57 Scott Frances R.N. Allergies Tramadol. --20:58 Scott Frances R.N. Medication/allergy information source: the patient. --21:03 Scott Frances R.N. History Arrived by private vehicle. Historian: patient. Accompanied by family. Primary physician ([facility]). Onset. (Last Monday night). ( Patient reports being seen in ED at [facility] on Monday was told she has a corneal abrasion, has been using the prescribed meds,was seen today at the [facility] clinic and was told to be seen in ED again because not getting better). PAST MEDICAL HX: Immunizations: up-to-date. Last normal menstrual period was 4 weeks ago. SOCIAL HX: Never smoker. No alcohol use or drug use. ABUSE ASSESSMENT: No report of abuse. FALL RISK ASSESSMENT: Fall risk assessment completed. No fall risk identified. NUTRITIONAL RISK ASSESSMENT: The nutritional risk assessment revealed no deficiencies. FUNCTIONAL ASSESSMENT: Functional assessment: no impairments noted. LEARNING NEEDS ASSESSMENT: The learning needs assessment revealed no barriers. SKIN INTEGRITY ASSESSMENT: Skin integrity risk assessment completed. No skin integrity risk identified. --21:03 Scott Frances R.N. PROBLEMS: Cholecystitis. --21:00 Scott Frances R.N. ADDITIONAL SURGERIES: Cholecystectomy. Knee Surgery. Tonsillectomy. --21:00 Scott Frances R.N. Interventions ID band on patient. To treatment room. --21:03 Scott Frances R.N. PHYSICAL ASSESSMENT 21:04. Ambulatory to room. GENERAL / NEURO / PSYCH: Alert. HEENT: No facial asymmetry noted. ( swelling of upper and lower eye lids). RESPIRATORY: Respirations not labored. SKIN: Skin is warm and dry. Abnormal skin turgor. --21:04 Scott Frances R.N. NURSING PROGRESS NOTES 21:04. Head of bed elevated. Two patient identifiers checked. Call light placed in reach. Bed placed in lowest position. Brakes of bed on. Patient ready for evaluation- chart flagged. --21:04 Scott Frances R.N. 21:20 01/23/2017 Proparacaine Eye Drops 2 drop given. (at bedside). --21:45 Scott Frances R.N. 21:20 01/23/2017 FLUORESCEIN Opth soln 1 Strip given. (at bedside). --21:45 Scott Frances R.N. 21:46. The patient is calm and resting quietly. GENERAL / NEURO / PSYCH: Alert. Oriented X 4. RESPIRATORY: No respiratory distress. SKIN: Skin color within normal limits. Skin is warm and dry. --21:52 Scott Frances R.N. DISPOSITION / DISCHARGE Departure time: 21:50. Condition at departure: stable. No learning barriers present. Discharge instructions provided and reviewed with the patient. Reviewed medication(s) side effects, precautions, dosing and course information. Prescription(s) given to the patient. Patient verbalized understanding. Written instructions provided in Indonesian. The patient was discharged home and unaccompanied at time of discharge. She left the Emergency Department ambulatory and via private vehicle. Patient driving. FALL RISK ASSESSMENT: Fall risk assessment completed. No fall risk identified. --21:52 Scott Frances R.N. Locked/Released at 01/23/2017 21:53 by Scott Frances R.N.
--- NOTE | 2017-01-24 00:13 | ED MAR SUMMARY ---
..... Medication Administration Record [facility] [address] [place] [address] Patient: TIMOTHY OROSCO Visit ID: [id number] 21y, F Weight: 81.1 kg Height/Length: 66 in BMI: 28.9 ALLERGIES: Tramadol Given 21:01/23/2017 Scott Frances, R.N. Medication Administered: FLUORESCEIN [EYE STRIPS], Dose: 1 Strip Opth soln. Medication Ordered: Fluorescein Eye Strips 1 strips (NOW). Given 21:01/23/2017 Scott Frances, R.N. Medication Administered: PROPARACAINE [EYE DROPS], Dose: 2 drop Eye Drops. Medication Ordered: Proparacaine Eye Drops (Solution 0.5 %) 2 drops (place at bedside).
--- NOTE | 2017-01-24 00:13 | ED ORDER SUMMARY ---
..... Patient: TIMOTHY OROSCO OrderSheet [facility] VisitID: [id number] [address] [place] [address] 21y, F Registration Date/Time: 01/23/2017 ORDER SHEET Weight: 81.1 kg (stated) Allergies: Tramadol GENERAL ORDERS: MEDICATION ORDERS: Fluorescein Eye Strips 1 strips (NOW) (21:43 01/23/2017 Shelley Pierce) (21:45 Mayank R.N.) Proparacaine Eye Drops (Solution 0.5 %) 2 drops (place at bedside) (:43 01/23/2017 Shelley Pierce) (21:45 Mayank Zuñiga.) IV FLUIDS: ORDER SHEET NOTES: [Electronically signed by Scott Frances R.N. (21:53 01/23/2017)] [Electronically signed by Roni Saavedra Dr. (00:13 01/24/2017)] [Electronically locked/signed by Scott Frances R.N. (21:53 01/23/2017)]
--- NOTE | 2017-01-24 00:13 | ED MED RECONCILIATION SUMMARY ---
Patient: TIMOTHY OROSCO Medication Reconciliation Report [facility] VisitID: [id number] [address] [place] [address] 21y, F Registration Date/Time: 01/23/2017 Weight: 81.1 kg Height/Length: 66 in. BMI: 28.9 ALLERGIES: Tramadol The patient's Home Medications are listed below: STOP TAKING THE FOLLOWING MEDICATIONS: Ofloxacin Ophthalmic 2-ggts , 4-6 x daily CONTINUE TAKING THE FOLLOWING MEDICATIONS: Motrin Oral 800 mg, 3x a day Refresh Ophthalmic The source(s) of the original Home Medication information: patient The following Medications were given to the patient in the Emergency Department: Proparacaine [Eye Drops] Eye Drops 2 drop, administered: 01/23/2017 9:20:00 PM FLUORESCEIN [EYE STRIPS] Opth soln 1 Strip, administered: 01/23/2017 9:20:00 PM The following Medications were prescribed to the patient: Erythromycin ophthalmic ointment 0.5% : apply 0.5 inch to inner aspect of the lower lid on the affected eye every 4 hours while awake for 5 days. Dispense three and one half (3.5) grams. No refill. -- Roni Saavedra Dr.
--- NOTE | 2017-01-24 00:13 | ED MED RECONCILIATION SUMMARY ---
Patient: TIMOTHY OROSCO Medication Reconciliation Report [facility] VisitID: [id number] [address] [place] [address] 21y, F Registration Date/Time: 01/23/2017 Weight: 81.1 kg Height/Length: 66 in. BMI: 28.9 ALLERGIES: Tramadol The patient's Home Medications are listed below: STOP TAKING THE FOLLOWING MEDICATIONS: Ofloxacin Ophthalmic 2-ggts , 4-6 x daily CONTINUE TAKING THE FOLLOWING MEDICATIONS: Motrin Oral 800 mg, 3x a day Refresh Ophthalmic The source(s) of the original Home Medication information: patient The following Medications were given to the patient in the Emergency Department: Proparacaine [Eye Drops] Eye Drops 2 drop, administered: 01/23/2017 9:20:00 PM FLUORESCEIN [EYE STRIPS] Opth soln 1 Strip, administered: 01/23/2017 9:20:00 PM The following Medications were prescribed to the patient: Erythromycin ophthalmic ointment 0.5% : apply 0.5 inch to inner aspect of the lower lid on the affected eye every 4 hours while awake for 5 days. Dispense three and one half (3.5) grams. No refill. -- Roni Saavedra Dr.
--- NOTE | 2017-01-24 00:13 | ED DISCHARGE INSTRUCTIONS ---
Patient: TIMOTHY OROSCO General Instructions [facility] VisitID: [id number] [place] [address] 21y, F Registration Date/Time: 01/23/2017 01/23/2017 20:52 BP: 117/72. HR: 96. RR: 16. O2 saturation: 100%. Temp: 98.5 F. Pain level now: 7/10. Blood pressure normal. Oxygen saturation normal. Acute conjunctivitis of the left eye (acute). Small corneal abrasion to the left eye. No foreign body. INSTRUCTIONS Off work today, tomorrow. Warnings: GENERAL WARNINGS: Return or contact your physician immediately if your condition worsens or changes unexpectedly, if not improving as expected, or if other problems arise. Specifically return if pain, vomiting, bleeding, breathing difficulty or fever. Your Current Medications: STOP TAKING THE FOLLOWING MEDICATIONS: Ofloxacin Ophthalmic : 2-ggts 4-6 x daily. CONTINUE TAKING THE FOLLOWING MEDICATIONS: Motrin Oral : 800 mg 3x a day, prn. Refresh Ophthalmic. Prescription Medications: Erythromycin ophthalmic ointment 0.5% : apply 0.5 inch to inner aspect of the lower lid on the affected eye every 4 hours while awake for 5 days. Dispense three and one half (3.5) grams. No refill. Follow-up: Return to the emergency department as needed. Follow up with your doctor as scheduled. Reason for referral: recheck today's concerns. Summary of care provided to patient via paper. Screening today revealed the patient's blood pressure to be in the normal range. The patient should follow up with a primary care provider for blood pressure management. Understanding of the discharge instructions verbalized by patient. ADDITIONAL INFORMATION Corneal Abrasion The cornea is the clear part in the front of the eye. This sensitive area is very painful when injured. There may be tearing and your vision may be blurry until healing occurs. You may be sensitive to light. This part of the body heals quickly. You can expect the pain to go away within 24-48 hours. If the abrasion is large or deep, your doctor may apply an eye patch, although this is not always done. An antibiotic ointment or eye drops may also be used to prevent infection. Numbing drops may be used to relieve the pain temporarily so that your eyes can be examined. However, these drops cannot be prescribed for home use because that would slow down the healing process. Also, if you cant feel your eye, there is a chance of accidentally injuring your eye further without knowing it. Home Care: A cold pack (ice in a plastic bag, wrapped in a towel) may be applied over the eye (or eyepatch) for 20 minutes at a time, to reduce pain. You may use acetaminophen (Tylenol) or ibuprofen (Motrin, Advil) to control pain, unless another pain medicine was prescribed. [NOTE: If you have chronic liver or kidney disease or ever had a stomach ulcer or GI bleeding, talk with your doctor before using these medicines.] Rest your eyes and do not read until symptoms are gone. If you use contact lenses, do not wear them until all symptoms are gone. If your vision is affected by the corneal abrasion or if an eyepatch was applied, DO NOT DRIVE a motor vehicle or operate machinery until all symptoms are gone. Otherwise, you would have trouble judging distances with only one eye. If your eyes are sensitive to light, try wearing sunglasses, or stay indoors, until symptoms go away. Follow Up as advised by our staff. Serious abrasions may be referred to an animal control specialist (line crew supervisor). If no patch was used but the pain continues for more than 48 hours, you should have another exam. Return to this facility or contact the referral doctor to arrange this. If your eye was patched and if you were asked to remove the patch yourself, see your doctor or return to this facility if your pain is still present after the patch is removed. If you were given a return appointment for patch removal and re-exam, do not miss this. It could be harmful if the patch remains in place longer than advised. Get Prompt Medical Attention if any of the following occur: Increasing eye pain or pain that does not improve after 24 hours Discharge from the eye Increasing redness of the eye or swelling of the eyelids Your vision gets worse Erythromycin Eye ointment What is this medicine? ERYTHROMYCIN (er lucio SAMANIEGO sin) is a macrolide antibiotic. It is used to treat bacterial eye infections. It also prevents a certain type of eye infection that can occur in some babies. How should I use this medicine? This medicine is only for use in the eye. Follow the directions on the prescription label. Wash hands before and after use. Tilt your head back slightly and pull your lower eyelid down with your index finger to form a pouch. Try not to touch the tip of the tube, to your eye, fingertips, or any other surface. Squeeze the end of the tube to apply a thin layer of the ointment to the inside of the lower eyelid. Close the eye gently to spread the ointment. Your vision may blur for a few minutes. Use your doses at regular intervals. Do not use your medicine more often than directed. Finish the full course prescribed by your doctor or health palliative care coordinator even if you think your condition is better. Do not stop using except on the advice of your doctor or health palliative care coordinator. Talk to your passenger service supervisor regarding the use of this medicine in children. Special care may be needed. What side effects may I notice from receiving this medicine? Side effects that you should report to your doctor or health palliative care coordinator as soon as possible: allergic reactions like skin rash, itching or hives, swelling of the face, lips, or tongue burning, stinging, or itching of the eyes or eyelids changes in vision redness, swelling, or pain What may interact with this medicine? Interactions are not expected. Do not use any other eye products without telling your doctor or health palliative care coordinator. What if I miss a dose? If you miss a dose, use it as soon as you can. If it is almost time for your next dose, use only that dose. Do not use double or extra doses. Where should I keep my medicine? Keep out of the reach of children. Store at room temperature between 15 and 30 degrees C (59 and 86 degrees F). Do not freeze. Throw away any unused ointment after the expiration date. What should I tell my health care provider before I take this medicine? if you have an unusual or allergic reaction to erythromycin, foods, dyes, or preservatives or trying to get breast-feeding What should I watch for while using this medicine? Tell your doctor or health palliative care coordinator if your symptoms do not improve in 2 to 3 days. You have been given the following additional information: Corneal Abrasion Erythromycin Eye ointment Off work today, tomorrow. (Electronically signed by Roni Saavedra Dr. 01/24/2017 0:13)
--- NOTE | 2017-01-24 00:13 | ED MAR SUMMARY ---
..... Medication Administration Record [facility] [address] [place] [address] Patient: TIMOTHY OROSCO Visit ID: [id number] 21y, F Weight: 81.1 kg Height/Length: 66 in BMI: 28.9 ALLERGIES: Tramadol Given 21:01/23/2017 Scott Frances, R.N. Medication Administered: FLUORESCEIN [EYE STRIPS], Dose: 1 Strip Opth soln. Medication Ordered: Fluorescein Eye Strips 1 strips (NOW). Given 21:01/23/2017 Scott Frances, R.N. Medication Administered: PROPARACAINE [EYE DROPS], Dose: 2 drop Eye Drops. Medication Ordered: Proparacaine Eye Drops (Solution 0.5 %) 2 drops (place at bedside).
--- NOTE | 2017-01-24 00:13 | ED ORDER SUMMARY ---
..... Patient: TIMOTHY OROSCO OrderSheet [facility] VisitID: [id number] [address] [place] [address] 21y, F Registration Date/Time: 01/23/2017 ORDER SHEET Weight: 81.1 kg (stated) Allergies: Tramadol GENERAL ORDERS: MEDICATION ORDERS: Fluorescein Eye Strips 1 strips (NOW) (21:43 01/23/2017 Shelley Pierce) (21:45 Mayank R.N.) Proparacaine Eye Drops (Solution 0.5 %) 2 drops (place at bedside) (:43 01/23/2017 Shelley Pierce) (21:45 Mayank Zuñiga.) IV FLUIDS: ORDER SHEET NOTES: [Electronically signed by Scott Frances R.N. (21:53 01/23/2017)] [Electronically signed by Roni Saavedra Dr. (00:13 01/24/2017)] [Electronically locked/signed by Scott Frances R.N. (21:53 01/23/2017)]
--- NOTE | 2017-01-24 00:13 | ED DISCHARGE INSTRUCTIONS ---
Patient: TIMOTHY OROSCO General Instructions [facility] VisitID: [id number] [place] [address] 21y, F Registration Date/Time: 01/23/2017 01/23/2017 20:52 BP: 117/72. HR: 96. RR: 16. O2 saturation: 100%. Temp: 98.5 F. Pain level now: 7/10. Blood pressure normal. Oxygen saturation normal. Acute conjunctivitis of the left eye (acute). Small corneal abrasion to the left eye. No foreign body. INSTRUCTIONS Off work today, tomorrow. Warnings: GENERAL WARNINGS: Return or contact your physician immediately if your condition worsens or changes unexpectedly, if not improving as expected, or if other problems arise. Specifically return if pain, vomiting, bleeding, breathing difficulty or fever. Your Current Medications: STOP TAKING THE FOLLOWING MEDICATIONS: Ofloxacin Ophthalmic : 2-ggts 4-6 x daily. CONTINUE TAKING THE FOLLOWING MEDICATIONS: Motrin Oral : 800 mg 3x a day, prn. Refresh Ophthalmic. Prescription Medications: Erythromycin ophthalmic ointment 0.5% : apply 0.5 inch to inner aspect of the lower lid on the affected eye every 4 hours while awake for 5 days. Dispense three and one half (3.5) grams. No refill. Follow-up: Return to the emergency department as needed. Follow up with your doctor as scheduled. Reason for referral: recheck today's concerns. Summary of care provided to patient via paper. Screening today revealed the patient's blood pressure to be in the normal range. The patient should follow up with a primary care provider for blood pressure management. Understanding of the discharge instructions verbalized by patient. ADDITIONAL INFORMATION Corneal Abrasion The cornea is the clear part in the front of the eye. This sensitive area is very painful when injured. There may be tearing and your vision may be blurry until healing occurs. You may be sensitive to light. This part of the body heals quickly. You can expect the pain to go away within 24-48 hours. If the abrasion is large or deep, your doctor may apply an eye patch, although this is not always done. An antibiotic ointment or eye drops may also be used to prevent infection. Numbing drops may be used to relieve the pain temporarily so that your eyes can be examined. However, these drops cannot be prescribed for home use because that would slow down the healing process. Also, if you cant feel your eye, there is a chance of accidentally injuring your eye further without knowing it. Home Care: A cold pack (ice in a plastic bag, wrapped in a towel) may be applied over the eye (or eyepatch) for 20 minutes at a time, to reduce pain. You may use acetaminophen (Tylenol) or ibuprofen (Motrin, Advil) to control pain, unless another pain medicine was prescribed. [NOTE: If you have chronic liver or kidney disease or ever had a stomach ulcer or GI bleeding, talk with your doctor before using these medicines.] Rest your eyes and do not read until symptoms are gone. If you use contact lenses, do not wear them until all symptoms are gone. If your vision is affected by the corneal abrasion or if an eyepatch was applied, DO NOT DRIVE a motor vehicle or operate machinery until all symptoms are gone. Otherwise, you would have trouble judging distances with only one eye. If your eyes are sensitive to light, try wearing sunglasses, or stay indoors, until symptoms go away. Follow Up as advised by our staff. Serious abrasions may be referred to an family law specialist (intensive care anaesthetist). If no patch was used but the pain continues for more than 48 hours, you should have another exam. Return to this facility or contact the referral doctor to arrange this. If your eye was patched and if you were asked to remove the patch yourself, see your doctor or return to this facility if your pain is still present after the patch is removed. If you were given a return appointment for patch removal and re-exam, do not miss this. It could be harmful if the patch remains in place longer than advised. Get Prompt Medical Attention if any of the following occur: Increasing eye pain or pain that does not improve after 24 hours Discharge from the eye Increasing redness of the eye or swelling of the eyelids Your vision gets worse Erythromycin Eye ointment What is this medicine? ERYTHROMYCIN (er lucio SAMANIEGO sin) is a macrolide antibiotic. It is used to treat bacterial eye infections. It also prevents a certain type of eye infection that can occur in some babies. How should I use this medicine? This medicine is only for use in the eye. Follow the directions on the prescription label. Wash hands before and after use. Tilt your head back slightly and pull your lower eyelid down with your index finger to form a pouch. Try not to touch the tip of the tube, to your eye, fingertips, or any other surface. Squeeze the end of the tube to apply a thin layer of the ointment to the inside of the lower eyelid. Close the eye gently to spread the ointment. Your vision may blur for a few minutes. Use your doses at regular intervals. Do not use your medicine more often than directed. Finish the full course prescribed by your doctor or health managed care liaison even if you think your condition is better. Do not stop using except on the advice of your doctor or health managed care liaison. Talk to your die storage worker regarding the use of this medicine in children. Special care may be needed. What side effects may I notice from receiving this medicine? Side effects that you should report to your doctor or health managed care liaison as soon as possible: allergic reactions like skin rash, itching or hives, swelling of the face, lips, or tongue burning, stinging, or itching of the eyes or eyelids changes in vision redness, swelling, or pain What may interact with this medicine? Interactions are not expected. Do not use any other eye products without telling your doctor or health managed care liaison. What if I miss a dose? If you miss a dose, use it as soon as you can. If it is almost time for your next dose, use only that dose. Do not use double or extra doses. Where should I keep my medicine? Keep out of the reach of children. Store at room temperature between 15 and 30 degrees C (59 and 86 degrees F). Do not freeze. Throw away any unused ointment after the expiration date. What should I tell my health care provider before I take this medicine? if you have an unusual or allergic reaction to erythromycin, foods, dyes, or preservatives or trying to get breast-feeding What should I watch for while using this medicine? Tell your doctor or health managed care liaison if your symptoms do not improve in 2 to 3 days. You have been given the following additional information: Corneal Abrasion Erythromycin Eye ointment Off work today, tomorrow. (Electronically signed by Roni Saavedra Dr. 01/24/2017 0:13)
== END 2017-01-23 21:50 | disposition home or self-care (01) ==
LOC: ED SRH 20:40
DX: S05.0 Injury of conjunctiva and corneal abrasion without foreign body (principal); H10.32 Unspecified acute conjunctivitis, left eye; X58.XXXA Exposure to other specified factors, initial encounter; Y93.9 Activity, unspecified; Y92.009 Unspecified place in unspecified non-institutional (private) residence as the place of occurrence of the external cause; Y99.9 Unspecified external cause status